=== PATIENT | female | born 2000 | race Two or more races ===

== ENCOUNTER 2022-03-25 20:16 | Emergency (ER) | payer MEDICAID ==
[~2022-03-25] VITALS: Ht 167.6 cm; Wt 99.8 kg
[2022-03-25 20:16] VITALS: BP 151/98
== END 2022-03-25 23:40 | disposition home or self-care (01) ==
LOC: ER 20:16
DX: S09.93XA Unspecified injury of face, initial encounter (principal); W01.0XXA Fall on same level from slipping, tripping and stumbling without subsequent striking against object, initial encounter; Y93.89 Activity, other specified; Y92.89 Other specified places as the place of occurrence of the external cause; Y99.8 Other external cause status
CPT/HCPCS: 70450